=== PATIENT | male | born 1960 | race African-American/Black ===

== ENCOUNTER 2023-08-20 14:04 | Emergency (ER) | payer OTHER ==
[~2023-08-20] VITALS: Ht 188 cm; Wt 104.5 kg
[~2023-08-20 14:04] MED LIST: CEPH-558 PO; HYDR-4062 PO; IBUP-1554 PO
[2023-08-20 14:20] VITALS: TEMP 98
[2023-08-20 15:00] VITALS: BP 123/62; PULSE 62; RESP 18
== END 2023-08-20 15:53 | disposition home or self-care (01) ==
LOC: EMS 14:04
DX: S61.210D Laceration without foreign body of right index finger without damage to nail, subsequent encounter (principal); F17.210 Nicotine dependence, cigarettes, uncomplicated; W54.0XXD Bitten by dog, subsequent encounter
CPT/HCPCS: 99282; Z7502